=== PATIENT | female | born 1945 | race Caucasian/White ===

== ENCOUNTER 2018-03-31 08:28 | Observation (INO) ==
[2018-03-31] MEDS ORDERED: Acetaminophen 325 MG Tablet PO ONE (08:54)
[2018-03-31 09:24] LABS: Hematocrit 41.7 % (35.0-46.0); Hemoglobin 14.2 gm/dL (11.6-15.3); Mean Corpuscular Hemoglobin 31.8 pg (27.0-34.0); Mean Corpuscular Volume 93.3 fL (80.0-100.0); Mean Platelet Volume 8.6 fL (7.0-11.0); Platelet Count 237 th/mm3 (150-450); Red Blood Count 4.47 mil/mm3 (4.00-5.30); Red Cell Distribution Width 12.7 % (11.6-17.2); White Blood Count 8.7 th/mm3 (4.0-11.0)
--- NOTE | 2018-03-31 09:30 | XR ---
EXAM DATE: 03/31/2018 9:09 AM EST AGE/SEX: 72 years / Female INDICATIONS: Left arm pain, mid chest pain CLINICAL DATA: This is the patient's initial encounter. Patient reports that signs and symptoms have been present for 3 days and indicates a pain score of 4/10. MEDICAL/SURGICAL HISTORY: None. None. COMPARISON: No prior exams available for comparison. FINDINGS: Mild cardiomegaly without infiltrate or failure. There is no pleural effusion or pneumothorax Bones are osteopenic without fracture. CONCLUSION: Mild cardiomegaly without failure. Left shoulder appears unremarkable Electronically signed by: Oneil Hansen MD Board Certified Radiologist 03/31/2018 9:28 AM EST
--- NOTE | 2018-03-31 09:32 | ED ---
HPI General Chief complaint: Extremity Problem,Nontraumatic Stated complaint: left arm pain Time Seen by Provider: 03/31/18 08:45 Source: patient Mode of arrival: ambulatory Limitations: no limitations History of Present Illness HPI narrative: Patient is a 72 year old female who comes in complaining of left arm pain and a feeling of "indigestion" in her chest. She says she has had these pains on and off for a few days now. She says she saw her doctor yesterday who told her to come to the ED if she ever had the symptoms again. She says it started again today when she woke up this morning. Nothing seems to make the pain better or worse. She denies shortness of breath, nausea or vomiting. She took a baby aspirin yesterday without relief. Severity is moderate. Related Data Home Medications Medication Instructions Recorded Confirmed Fosamax 70 mg PO WEEKLY 03/31/18 03/31/18 amlodipine 5 mg PO DAILY 03/31/18 03/31/18 atorvastatin 20 mg PO QPM 03/31/18 03/31/18 calcium citrate-vitamin D3 1 tab PO DAILY 03/31/18 03/31/18 [Citracal + D Maximum] ergocalciferol (vitamin D2) 50,000 unit PO QWEEK 03/31/18 03/31/18 [Vitamin D2] metoprolol succinate 50 mg PO BID 03/31/18 03/31/18 hthwpeub-lbl-cyxd-FA-lutein 1 tab PO DAILY 03/31/18 03/31/18 [Centrum Silver Women] omeprazole 40 mg PO DAILY 03/31/18 03/31/18 Allergies Allergy/AdvReac Type Severity Reaction Status Date / Time No Known Allergies Allergy Verified 03/31/18 08:34 Review of Systems ROS: all other systems reviewed are negative Constitutional Denies chills and Denies fever(s) ENT Denies dizziness and Denies headache(s) Cardiovascular Denies edema and Denies dyspnea Respiratory Denies cough and Denies dyspnea Gastrointestinal Denies nausea and Denies vomiting Musculoskeletal Denies back pain Integumentary/Breasts Denies sores and Denies wounds Neurologic Denies focal weakness and Denies numbness [facility] Medical History Medical History GERD (gastroesophageal reflux disease) (Acute) High cholesterol (Acute) Hx of hysterectomy (Acute) Hypertension (Acute) Osteoarthritis (Acute) Pelvic prolapse (Acute) Social History Social History Substance History: No History of Abuse Smoking Status: Former smoker How Often Do You Have a Drink Containing Alcohol: 2 to 4 times a month Recent Travel in [facility] within the Last 8 Weeks: No Recent Out of Country Travel within the Last 8 Weeks: No Immunization History Tetanus Immunization: Unsure Exam Narrative Exam Narrative: GENERAL: Awake and alert, in no acute distress. SKIN: Focused skin assessment warm/dry. No wounds or signs of infection. HEAD: Atraumatic. Normocephalic. EYES: Pupils equal and round. No scleral icterus. No injection or drainage. ENT: Mucous membranes pink and moist. NECK: Trachea midline. No JVD. CARDIOVASCULAR: Regular rate and rhythm. No murmur appreciated. RESPIRATORY: No accessory muscle use. Clear to auscultation. Breath sounds equal bilaterally. GASTROINTESTINAL: Abdomen soft, non-tender, nondistended. MUSCULOSKELETAL: No obvious deformities. No clubbing. No cyanosis. No edema. No tenderness to palpation of the shoulder or elbow. Pain to arm is not reproducible. Pulses intact. NEUROLOGICAL: Awake and alert. No obvious cranial nerve deficits. Motor grossly within normal limits. Normal speech. PSYCHIATRIC: Appropriate mood and affect; insight and judgment normal. Course Initial Documented Vital Signs Temperature 98.2 F 03/31/18 08:30 Pulse Rate 81 03/31/18 08:30 Respiratory Rate 16 03/31/18 08:30 Blood Pressure 169/79 H 03/31/18 08:30 Pulse Oximetry 96 03/31/18 08:30 Last Documented Vital Signs Temperature 98.2 F 03/31/18 08:30 Pulse Rate 62 03/31/18 09:00 Respiratory Rate 16 03/31/18 09:00 Blood Pressure 135/66 03/31/18 09:00 Pulse Oximetry 95 03/31/18 09:00 Medical Decision Making [facility] Narrative Medical decision making narrative: Patient is a 72 year old female who comes in complaining of discomfort in her chest and left arm. She was told to come in by her doctor as she has been having these symptoms on and off for a few days. IV established, labs sent. Patient connected to the security monitor. Given Tylenol, Flexeril, Aspirin. Labs show no acute abnormalities. CXR shows no acute abnormalities. Concern is for atypical chest pain presentation, will require ACS rule out. Admitted for further management. Medical Screen Exam Complete: Yes Emergency Medical Condition: Yes Differential Diagnosis Differential Diagnosis: ACS vs NSTEMI vs STEMI vs muscle strain Medical Records Medical records reviewed: Yes I reviewed the patient's medical records. Lab Data Lab results reviewed: Yes I reviewed the patient's lab results. Result diagrams: 03/31/18 09:10 03/31/18 09:10 Lab Results 03/31/18 03/31/18 03/31/18 Range/Units 09:10 09:10 09:10 CBC w Diff Slide review pending WBC 8.7 (4.0-11.0) th/mm3 RBC 4.47 (4.00-5.30) mil/mm3 Hgb 14.2 (11.6-15.3) gm/dL Hct 41.7 (35.0-46.0) % MCV 93.3 (80.0-100.0) fL MCH 31.8 (27.0-34.0) pg MCHC 34.0 (32.0-36.0) % RDW 12.7 (11.6-17.2) % Plt Count 237 (150-450) th/mm3 MPV 8.6 (7.0-11.0) fL WBC Differential Manual diff final Seg Neuts % (Manual) 73 H (16-70) % Band Neuts % (Manual) 2 (0-6) % Lymphocytes % (Manual) 15 (9-44) % Monocytes % (Manual) 5 (0-8) % Eosinophils % (Manual) 2 (0-4) % Basophils % (Manual) 3 H (0-2) % Abs Neuts (Manual) 6.5 (1.8-7.7) th/mm3 Differential Comment . Platelet Estimate Normal (Normal) Platelet Morphology Normal (Normal) PT (9.8-11.6) sec INR Ratio APTT (23.4-31.7) sec Sodium 141 (136-145) meq/L Potassium 3.6 (3.5-5.1) meq/L Chloride 106 (98-107) meq/L Carbon Dioxide 28.1 (21.0-32.0) meq/L Anion Gap 7 (5-15) meq/L BUN 10 (7-18) mg/dL Creatinine 0.69 (0.50-1.00) mg/dL Estimated GFR 83 L (>89) mL/min Random Glucose 133 H (74-106) mg/dL Calcium 9.8 (8.5-10.1) mg/dL Total Bilirubin 0.6 (0.2-1.0) mg/dL AST 26 (15-37) U/L ALT 34 (10-53) U/L Alkaline Phosphatase 109 (45-117) U/L Total Creatine Kinase 50 (26-192) U/L Troponin I Less than 0.02 L (0.02-0.05) ng/mL B-Natriuretic Peptide 10 (0-100) pg/mL Total Protein 7.6 (6.4-8.2) g/dL Albumin 3.9 (3.4-5.0) g/dL Lipase 96 (73-393) U/L 03/31/18 Range/Units 09:10 CBC w Diff WBC (4.0-11.0) th/mm3 RBC (4.00-5.30) mil/mm3 Hgb (11.6-15.3) gm/dL Hct (35.0-46.0) % MCV (80.0-100.0) fL MCH (27.0-34.0) pg MCHC (32.0-36.0) % RDW (11.6-17.2) % Plt Count (150-450) th/mm3 MPV (7.0-11.0) fL WBC Differential Seg Neuts % (Manual) (16-70) % Band Neuts % (Manual) (0-6) % Lymphocytes % (Manual) (9-44) % Monocytes % (Manual) (0-8) % Eosinophils % (Manual) (0-4) % Basophils % (Manual) (0-2) % Abs Neuts (Manual) (1.8-7.7) th/mm3 Differential Comment Platelet Estimate (Normal) Platelet Morphology (Normal) PT 10.0 (9.8-11.6) sec INR 1.0 Ratio APTT 24.7 (23.4-31.7) sec Sodium (136-145) meq/L Potassium (3.5-5.1) meq/L Chloride (98-107) meq/L Carbon Dioxide (21.0-32.0) meq/L Anion Gap (5-15) meq/L BUN (7-18) mg/dL Creatinine (0.50-1.00) mg/dL Estimated GFR (>89) mL/min Random Glucose (74-106) mg/dL Calcium (8.5-10.1) mg/dL Total Bilirubin (0.2-1.0) mg/dL AST (15-37) U/L ALT (10-53) U/L Alkaline Phosphatase (45-117) U/L Total Creatine Kinase (26-192) U/L Troponin I (0.02-0.05) ng/mL B-Natriuretic Peptide (0-100) pg/mL Total Protein (6.4-8.2) g/dL Albumin (3.4-5.0) g/dL Lipase (73-393) U/L Imaging Data Radiologist's impression: Chest X-Ray 03/31/18 08:54 CONCLUSION: Mild cardiomegaly without failure. Left shoulder appears unremarkable ECG Data EKG Prior to Arrival: No Attestation: I personally reviewed and interpreted this ECG as follows: Interpretation: ECG shows NSR at a rate of 81, no ST elevation or depression, normal intervals. Discharge Plan Discharge Disposition Patient Disposition: ED Admit(ED Internal Use Only) Discharge Condition Condition: Stable Discharge Details Diagnosis: Chest pain Physicians Team ED Provider: Stromy Masters Primary Care Provider: Sarika Moody Rxs /Orders / Referrals /Forms Prescriptions: No Action atorvastatin 20 mg Tablet 20 mg PO QPM RF: 0 metoprolol succinate 50 mg Tablet Extended Release 24 Hr 50 mg PO BID RF: 0 amlodipine 5 mg Tablet 5 mg PO DAILY RF: 0 omeprazole 40 mg Capsule,Delayed Release(Dr/Ec) 40 mg PO DAILY RF: 0 ergocalciferol (vitamin D2) [Vitamin D2] 50,000 unit Capsule 50,000 unit PO QWEEK RF: 0 calcium citrate-vitamin D3 [Citracal + D Maximum] 315-250 mg-unit Tablet 1 tab PO DAILY RF: 0 lzctqwkb-bvt-knqo-FA-lutein [Centrum Silver Women] 8 mg iron-400 mcg-300 mcg Tablet 1 tab PO DAILY RF: 0 Fosamax 70 mg PO WEEKLY RF: 0 Discharge Interventions Interventions: Vital Signs Last Done: 03/31/18 08:48 Status ED Status: With Doctor
[2018-03-31 09:45] LABS: Activated Partial Thrombo Time 24.7 sec (23.4-31.7)
[2018-03-31 09:49] LABS: Calcium 9.8 mg/dL (8.5-10.1)
[2018-03-31 09:50] LABS: Albumin 3.9 g/dL (3.4-5.0); Glucose,Random 133 mg/dL (74-106); Lipase 96 U/L (73-393)
[2018-03-31 09:51] LABS: Carbon Dioxide 28.1 meq/L (21.0-32.0)
[2018-03-31 09:52] LABS: Anion Gap 7 meq/L (5-15); Chloride 106 meq/L (98-107); Potassium 3.6 meq/L (3.5-5.1); Sodium 141 meq/L (136-145)
[2018-03-31 09:53] LABS: Glomerular Filtration Rate 83 mL/min (>89)
[2018-03-31 09:54] LABS: Total Protein 7.6 g/dL (6.4-8.2)
[2018-03-31 09:56] LABS: Alkaline Phosphatase 109 U/L (45-117)
[2018-03-31 09:58] LABS: Alanine Aminotransferase 34 U/L (10-53)
[2018-03-31 10:02] LABS: Aspartate Aminotransferase 26 U/L (15-37); Blood Urea Nitrogen 10 mg/dL (7-18)
[2018-03-31 10:14] LABS: Creatine Kinase 50 U/L (26-192)
[2018-03-31 10:20] LABS: Eosinophils 2 % (0-4); Lymphocytes 15 % (9-44); Monocytes 5 % (0-8)
[2018-03-31 10:21] LABS: Platelet Estimate Normal (Normal); Platelet Morphology Normal (Normal)
[2018-03-31 12:24] LABS: Creatine Kinase 44 U/L (26-192)
--- NOTE | 2018-03-31 13:10 | P.HPIM ---
History of Present Illness Primary Care Physician: Sarika Moody Chief Complaint: Chest pain History of Present Illness: This is a 72-year-old female patient with no medical history of hyperlipidemia, hypertension and GERD who presented to the ED with complaints of chest pain. Patient states that 2 days ago while she was sitting in the chair she noticed mid epigastric pain that characteristically burning in nature and felt like indigestion, she states that she drinks some water and it got better. Patient states that over the course of the last couple days she has had the same complaints as well as some left arm tingling and numbness. She states that the epigastric pain moved up her chest area was burning and pressure-like in nature. She admitted to have diaphoresis, denied any associated nausea, vomiting or shortness of breath. Patient denies any flulike symptoms including fever, chills, cough, headache, abdominal pain, nausea, vomiting, diarrhea or dysuria. She saw her primary care physician yesterday who recommended she come to the ED for evaluation. Patient denies any new changes to her medications. Denies any recent NSAID use. Denies any bowel changes including black or bloody stools. Patient underwent a cardiac stress test roughly 3 years ago which was reportedly unremarkable. Patient follows with business systems administrator in [place], did have an echocardiogram within the last few months which was reportedly unremarkable. Review of Systems Review of Systems: all other systems reviewed are negative [facility] Medical History Medical History GERD (gastroesophageal reflux disease) (Acute) High cholesterol (Acute) Hx of hysterectomy (Acute) Hypertension (Acute) Osteoarthritis (Acute) Pelvic prolapse (Acute) Family History Family History Other Family history in first degree relatives is unremarkable Social History Social History Substance History: No History of Abuse Second Hand Smoke Exposure: No Smoking Status: Former smoker How Often Do You Have a Drink Containing Alcohol: Monthly or less Recent Travel in [place] within the Last 8 Weeks: No Recent Out of Country Travel within the Last 8 Weeks: No Immunization History Tetanus Immunization: Unsure Medications and Allergies Allergies Allergy/AdvReac Type Severity Reaction Status Date / Time No Known Allergies Allergy Verified 03/31/18 08:34 Home Medications Medication Instructions Recorded Confirmed Type Fosamax 70 mg PO WEEKLY 03/31/18 03/31/18 History amlodipine 5 mg PO DAILY 03/31/18 03/31/18 History atorvastatin 20 mg PO QPM 03/31/18 03/31/18 History calcium citrate-vitamin D3 1 tab PO DAILY 03/31/18 03/31/18 History [Citracal + D Maximum] ergocalciferol (vitamin D2) 50,000 unit PO QWEEK 03/31/18 03/31/18 History [Vitamin D2] metoprolol succinate 50 mg PO BID 03/31/18 03/31/18 History wogoycji-hjs-nmjn-FA-lutein 1 tab PO DAILY 03/31/18 03/31/18 History [Centrum Silver Women] omeprazole 40 mg PO DAILY 03/31/18 03/31/18 History Active Medications: Active Medications Amlodipine Besylate (Norvasc) 5 mg PO DAILY AMI Atorvastatin Calcium (Lipitor) 20 mg PO QPM AMI Metoprolol Succinate (Toprol Xl) 50 mg PO BID AMI Nitroglycerin (Nitrostat Sl) 0.4 mg SL Q5M PRN PRN Reason: CHEST PAIN Non-Formulary Medication (Calcium Citrate-Vitamin D3 [Citracal + D Maximum]) 1 tab PO DAILY AMI Non-Formulary Medication (Smkoiqvt-Beu-Ngat-Fa-Lutein [Centrum Silver Women]) 1 tab PO DAILY AMI Non-Formulary Medication (Omeprazole [Omeprazole]) 40 mg PO DAILY AMI Sodium Chloride (Ns Flush) 2 ml IV.FLUSH UNSCH PRN PRN Reason: FLUSH AFTER USING IV ACCESS Last Admin: 03/31/18 09:06 Dose: 2 ml Sodium Chloride (Ns Flush) 2 ml IV.FLUSH BID AMI Sodium Chloride (Ns Flush) 2 ml IV.FLUSH PRN PRN PRN Reason: FLUSH AFTER USING IV ACCESS Physical Exam Vital signs: Vital Signs 03/31/18 08:30 03/31/18 08:48 03/31/18 08:54 Temperature 98.2 F Pulse Rate 81 77 65 Respiratory Rate 16 18 Blood Pressure 169/79 H 152/77 H Pulse Oximetry 96 97 95 03/31/18 09:00 03/31/18 10:30 03/31/18 12:38 Temperature Pulse Rate 62 69 Respiratory Rate 16 16 Blood Pressure 135/66 124/74 Pulse Oximetry 95 96 95 Intake & Output 03/30/18 03/31/18 03/31/18 18:59 06:59 18:59 Weight 71.4 kg Narrative: GENERAL: Well-developed, well-nourished patient in NAD. SKIN: Warm and dry. No rash. HEAD: Normocephalic. Atraumatic. EYES: Pupils equal and round. No scleral icterus. No injection or drainage. ENT: No nasal bleeding or discharge. Mucous membranes pink and moist. NECK: Supple. Trachea midline. CARDIOVASCULAR: Regular rate and rhythm. S1, S2 noted. No murmur appreciated. No reproducible chest discomfort RESPIRATORY: No accessory muscle use. Clear to auscultation. Breath sounds equal bilaterally. GASTROINTESTINAL: Abdomen soft, non-tender, nondistended. Normoactive bowel sounds x4. MUSCULOSKELETAL: No obvious deformities. Extremities without clubbing, cyanosis , or edema. NEUROLOGICAL: Awake and alert. No obvious cranial nerve deficits. Motor grossly within normal limits. 5/5 muscle strength in bilateral upper and lower extremities. Normal speech. PSYCHIATRIC: Appropriate mood and affect; insight and judgment normal. Results Labs CBC & Chem 7: 03/31/18 09:10 03/31/18 09:10 Imaging Impressions Chest X-Ray 03/31/18 08:54 CONCLUSION: Mild cardiomegaly without failure. Left shoulder appears unremarkable Caprini VTE Risk Assessment Caprini VTE Risk Assessment: Moderate/High Risk (score >= 2) Caprini Risk Assessment Model: Point Value = 1 Point Value = 2 Point Value = 3 Point Value = 5 Age 41-60 Minor surgery BMI > 25 kg/m2 Swollen legs Varicose veins or History of unexplained or recurrent spontaneous Oral contraceptives or hormone replacement Sepsis (< 1 month) Serious lung disease, including pneumonia (< 1 month) Abnormal pulmonary function Acute myocardial infarction Congestive heart failure (< 1 month) History of inflammatory bowel disease Medical patient at bed rest Age 61-74 Arthroscopic surgery Major open surgery (> 45 min) Laparoscopic surgery (> 45 min) Malignancy Confined to bed (> 72 hours) Immobilizing plaster cast Central venous access Age >= 75 History of VTE Family history of VTE Factor V Leiden Prothrombin [id number] Lupus anticoagulant Anticardiolipin antibodies Elevated serum homocysteine Heparin-induced thrombocytopenia Other congenital or acquired thrombophilia Stroke (< 1 month) Elective arthroplasty Hip, pelvis, or leg fracture Acute spinal cord injury (< 1 month) Prophylaxis Regimen: Total Risk Factor Score Risk Level Prophylaxis Regimen 0-1 Low Early ambulation 2 Moderate Order ONE of the following: *Sequential Compression Device (SCD) *Heparin 5000 units SQ BID 3-4 Higher Order ONE of the following medications: *Heparin 5000 units SQ TID *Enoxaparin/Lovenox 40 mg SQ daily (WT < 150 kg, CrCl > 30 mL/min) *Enoxaparin/Lovenox 30 mg SQ daily (WT < 150 kg, CrCl > 10-29 mL/min) *Enoxaparin/Lovenox 30 mg SQ BID (WT < 150 kg, CrCl > 30 mL/min) AND/OR *Sequential Compression Device (SCD) 5 or more Highest Order ONE of the following medications: *Heparin 5000 units SQ TID (Preferred with Epidurals) *Enoxaparin/Lovenox 40 mg SQ daily (WT < 150 kg, CrCl > 30 mL/min) *Enoxaparin/Lovenox 30 mg SQ daily (WT < 150 kg, CrCl > 10-29 mL/min) *Enoxaparin/Lovenox 30 mg SQ BID (WT < 150 kg, CrCl > 30 mL/min) AND *Sequential Compression Device (SCD) Assessment and Plan Plan This is a 72-year-old female patient with a known medical history of hypertension hyperlipidemia presented to the ED with complaints of chest pain. Chest pain Patient has been admitted to the chest pain center for observation. Serial EKGs and serial troponins have been ordered for ruling out ACS purposes. Initial troponin flat. We will continue to monitor trends. EKG reviewed showing controlled rate with no ST changes to indicate any ischemia , normal sinus rhythm. Patient will be continued on cardiac telemetry, monitor for any arrhythmias overnight. Chest x-ray reviewed showing some mild cardiomegaly without any failure. CBC and BMP reviewed essentially unremarkable. BNP 10. If ACS ruled out with serial EKGs and serial troponins, patient will undergo cardiac myocardial perfusion scan in the a.m. Patient's risk factors for coronary artery disease include hypertension and hyperlipidemia and age. Patient is stable at this time and agreeable to plan. Further hospitalization and treatment plan will depend on nuclear imaging results tomorrow a.m. Hypertension Continue home medications. Monitor blood pressure trends. Hyperlipidemia Continue statin. GERD Continue omeprazole. Urinary retention Continue Fosamax. Patient has a stimulator in place. DVT prophylaxis: SCDs. Discussed with patient, patient's , bedside RN and Dr. junior H&P: Quality VTE Deep Vein Thrombosis/Pulmonary Embolism Present on Admission: No
[2018-03-31 16:24] LABS: Creatine Kinase 43 U/L (26-192)
--- NOTE | 2018-03-31 18:05 | ECG ---
Date Performed: 03/31/2018 Time Performed: 11:49:24 PTAGE: 72 years EKG: Sinus rhythm MODERATE VOLTAGE CRITERIA FOR LVH, CONSIDER NORMAL VARIANT ABNORMAL RHYTHM ECG PREVIOUS TRACING : 03/31/2018 08.40 Since the previous tracing, no significant change noted DOCTOR: Shashank Loo Interpretating Date/Time 03/31/2018 18:04:43
--- NOTE | 2018-03-31 18:12 | ECG ---
Date Performed: 03/31/2018 Time Performed: 08:40:47 PTAGE: 72 years EKG: Sinus rhythm NORMAL ECG NO PREVIOUS TRACING DOCTOR: Shashank Loo Interpretating Date/Time 03/31/2018 18:11:50
[2018-04-01] MEDS ORDERED: Regadenoson Inj 0.4 MG/5 ML Syringe IV.PUSH ONE (07:58)
--- NOTE | 2018-04-01 08:44 | P.PNIM ---
Subjective Interval history: Follow-up chest pain. Patient seen and examined, status post myocardial perfusion scan. Symptoms have improved. There is a slight area of redistribution on the report. Cardiology has been called and will see patient later this afternoon. For now allow patient to eat. Vital signs are stable. Afebrile. Physical Exam Vital signs: Vital Signs 03/31/18 08:48 03/31/18 08:54 03/31/18 09:00 Temperature Pulse Rate 77 65 62 Respiratory Rate 18 16 Blood Pressure 152/77 H 135/66 Pulse Oximetry 97 95 95 03/31/18 10:30 03/31/18 11:25 03/31/18 12:38 Temperature 96.3 F L Pulse Rate 69 74 Respiratory Rate 16 20 Blood Pressure 124/74 127/62 Pulse Oximetry 96 95 95 03/31/18 16:00 03/31/18 19:30 03/31/18 20:00 Temperature 96.5 F L 97.5 F L Pulse Rate 78 74 Respiratory Rate 20 20 Blood Pressure 116/62 117/58 L Pulse Oximetry 94 L 93 L 94 L 04/01/18 00:00 04/01/18 04:00 Temperature 97 F L 97.1 F L Pulse Rate 73 100 H Respiratory Rate 18 20 Blood Pressure 118/57 L 112/59 L Pulse Oximetry 93 L 94 L Intake & Output 03/31/18 04/01/18 04/01/18 18:59 06:59 18:59 Intake Total 240 / 240 0 / 0 Balance 240 / 240 0 / 0 Weight 71.4 kg 71.5 kg Intake: Oral 240 / 240 0 / 0 Other: # Voids 2 2 Narrative: GENERAL: Well-developed, well-nourished patient in NAD. SKIN: Warm and dry. No rash. HEAD: Normocephalic. Atraumatic. EYES: Pupils equal and round. No scleral icterus. No injection or drainage. ENT: No nasal bleeding or discharge. Mucous membranes pink and moist. NECK: Supple. Trachea midline. CARDIOVASCULAR: Regular rate and rhythm. S1, S2 noted. No murmur appreciated. No reproducible chest discomfort RESPIRATORY: No accessory muscle use. Clear to auscultation. Breath sounds equal bilaterally. GASTROINTESTINAL: Abdomen soft, non-tender, nondistended. Normoactive bowel sounds x4. MUSCULOSKELETAL: No obvious deformities. Extremities without clubbing, cyanosis , or edema. NEUROLOGICAL: Awake and alert. No obvious cranial nerve deficits. Motor grossly within normal limits. 5/5 muscle strength in bilateral upper and lower extremities. Normal speech. PSYCHIATRIC: Appropriate mood and affect; insight and judgment normal. Results Labs CBC & Chem 7: 03/31/18 09:10 03/31/18 09:10 Imaging Imaging: Impressions Chest X-Ray 03/31/18 08:54 CONCLUSION: Mild cardiomegaly without failure. Left shoulder appears unremarkable Assessment and Plan Plan This is a 72-year-old female patient with a known medical history of hypertension hyperlipidemia presented to the ED with complaints of chest pain. Chest pain -Patient has been admitted to the chest pain center for observation. -Serial EKGs and serial troponins have been ordered for ruling out ACS purposes. -Troponin trend troponin flat. -EKG reviewed showing controlled rate with no ST changes to indicate any ischemia, normal sinus rhythm. -Patient will be continued on cardiac telemetry, monitor for any arrhythmias. -Chest x-ray reviewed showing some mild cardiomegaly without any failure. -CBC and BMP reviewed essentially unremarkable. BNP 10. -ACS ruled out with serial EKGs and serial troponins, patient underwent a cardiac myocardial perfusion scan, showing minimal redistribution septum, equivocal for ischemia with normal wall motion and ejection fraction greater than 70%. -Urology has been consulted for abnormal nuclear. Awaiting input and recommendations. Hypertension -Continue home medications. Monitor blood pressure trends. Hyperlipidemia -Continue statin. GERD -Continue omeprazole. Urinary retention -Continue Fosamax. Patient has a stimulator in place. DVT prophylaxis: SCDs. Discussed with patient, patient's , bedside RN and Dr. junior Progress Note: Quality VTE Deep Vein Thrombosis/Pulmonary Embolism Present on Admission: No
[2018-04-01] MEDS ORDERED: Non-Formulary Drug (Multivit-Min-Iron-Fa-Lutein [Centrum Silver Women] 1 TAB) PO SCH (09:00)
[2018-04-01] MEDS ORDERED: amLODIPine 5 MG Tablet PO SCH (09:00)
[2018-04-01] MEDS ORDERED: CALCIUM CITRATE VITAMIN D3 PO SCH (09:00)
--- NOTE | 2018-04-01 09:47 | NM ---
EXAM DATE: 04/01/2018 9:42 AM EST AGE/SEX: 72 years / Female INDICATIONS:Angina. . Substernal chest pain. CLINICAL DATA: This is the patient's initial encounter. Patient reports that signs and symptoms have been present for 1 day and indicates a pain score of 4/10. MEDICAL/SURGICAL HISTORY: Gastroesophageal reflux disease. Hypertension. None. COMPARISON: No prior exams available for comparison. DOSE: 8.5 mCi Tc 99m Myoview at rest 25.4 mCi [id number] at stress 0.4 mg Lexiscan STRESS SYMPTOMS: Dyspnea. EJECTION FRACTION: >70 % TECHNIQUE: The patient underwent pharmacologic stress with infusion of prescribed dose. Continuous ECG tracing was monitored during stress. Gated SPECT imaging was performed after stress and conventi onal SPECT imaging was performed at rest. The examination was performed on a SPECT/CT scanner, both attenuation and non-corrected datasets were reviewed. FINDINGS: There is very minimal redistribution in a small segment of the septum, mid septal wall. There are no fixed defects to suggest an infarction wall motion is normal with an ejection fraction o f greater than 70%. RISK CATEGORY: Low (<1% Annual Mortality Rate) CONCLUSION: 1. Minimal redistribution septum, equivocal for ischemia with normal wall motion and ejection fracti on greater than 70%. Correlation suggested Electronically signed by: Oneil Hansen MD Board Certified Radiologist 04/01/2018 9:46 AM EST
[2018-04-01 10:30] VITALS: RESP 15
[2018-04-01 12:43] VITALS: TEMP 97
--- NOTE | 2018-04-01 16:50 | MB ---
cc: Gomez Pacheco MD DATE: 04/01/2018 REASON FOR CONSULTATION: Atypical chest pain with minimally abnormal nuclear stress test. HISTORY OF PRESENT ILLNESS: The patient is a very pleasant 72-year-old woman with no significant cardiac history, who noted some vague left arm discomfort without any associated chest pain to her primary care physician. Later that day, the patient awoke with some central burning in her epigastric region and thus, her primary care physician-directed her to the emergency department for workup. She ruled out for SD and had a nuclear stress test, which was read as minimally abnormal, though low risk. Thus, I have been asked to provide recommendation. Currently, the patient is completely asymptomatic and hoping to be discharged home. She has no residual chest discomfort or arm pain, no shortness of breath, lightheadedness, dizziness, syncope. PAST MEDICAL HISTORY: Hypertension, hyperlipidemia. CURRENT MEDICATIONS: 1. Norvasc 5 mg daily. 2. Lipitor 20 mg daily. 3. Toprol-XL 50 mg b.i.d. ALLERGIES: NO KNOWN DRUG ALLERGIES. PHYSICAL EXAMINATION: VITAL SIGNS: Afebrile, pulse 82, respiratory rate 15, BP 138/66, saturating 96% on room air. GENERAL: A very pleasant woman in no distress. NECK: No JVD. LUNGS: Clear to auscultation bilaterally. CARDIOVASCULAR: Regular rate and rhythm. No murmurs appreciated. ABDOMEN: Benign. EXTREMITIES: No edema. LABORATORY DATA: Sodium 141, potassium 3.6, chloride 106, bicarbonate 28.1, BUN 10, creatinine 0.69, glucose 133. Cardiac enzymes are negative x 3. INR is 1.0. White count 8.7, hematocrit 41.7, platelets 237. EKG shows sinus rhythm without any acute ST or T-wave changes. Chest x-ray showed mild cardiomegaly without failure. A nuclear stress test was read as minimal redistribution of the septum equivocal for ischemia with normal wall motion, low risk. IMPRESSION: Atypical chest pain with low risk nuclear stress test. The patient's pain was quite atypical. EKG was normal and cardiac enzymes were also normal. Her nuclear stress test was low risk and essentially normal with only minimal septal redistribution which is typically not significant clinically. PLAN: I discussed all options with the patient including observation to a coronary CT scan to even cardiac catheterization. The patient and I agreed that option 1, close observation would be best, given the aforementioned low risk findings, and she can follow up with me in the office in the next week or two to ensure symptom resolution. Thank you again for the opportunity to participate in this patient's care. MD DAISHA [email or web address]/[email or web address] , 04:22 PM , 04:28 PM
[2018-04-01 17:08] VITALS: BP 125/77; PULSE 87; O2SAT 95
--- NOTE | 2018-04-02 07:09 | TR ---
Date Performed: 04/01/2018 Time Performed: 09:10:18 DOCTOR: Deangelo Anton DRUG LIST: CLINICAL HISTORY: CHEST PAIN REASON FOR TEST: Chest pain REASON FOR ENDING: OBSERVATION: CONCLUSION: COMMENTS: Lexiscan stress test was performed under standard four minute protocol. Radionuclide was injected one minute prior to ending the test. No electrocardiographic abormalities were present t o suggest ischemia. Nuclear imaging and interpretation are pending.
== END 2018-04-01 17:22 | disposition home or self-care (01) ==
LOC: PHED 08:28 → PHEDA 08:28 → PH3 11:10
PROVIDERS: ADMIT Hospitalist; ATTEND Hospitalist
DX: I20.9 Angina pectoris, unspecified; Z87.891 Personal history of nicotine dependence; R20.0 Anesthesia of skin; Z79.83 Long term (current) use of bisphosphonates; R07.89 Other chest pain; R20.2 Paresthesia of skin; M19.90 Unspecified osteoarthritis, unspecified site; I11.9 Hypertensive heart disease without heart failure; R10.13 Epigastric pain; E78.5 Hyperlipidemia, unspecified; K21.9 Gastro-esophageal reflux disease without esophagitis; Z79.899 Other long term (current) drug therapy
CPT/HCPCS: 71010; 71045; 78452; 80053; 82550; 83520; 83690; 83880; 84484; 85025; 85610; 85730; 93005; 93017; 99285; A9502; G0378; J2785; Q9969